=== PATIENT | female | born 1970 | race Caucasian/White ===

== ENCOUNTER 2020-08-18 14:22 | Emergency (ER) | payer OTHER, SELFPAY ==
[~2020-08-18] VITALS: Ht 157.5 cm; Wt 83.9 kg
[2020-08-18 14:25] VITALS: Ht 157.5 cm; Wt 83.9 kg
[2020-08-18 16:33] VITALS: BP 128/73
== END 2020-08-18 16:34 | disposition home or self-care (01) ==
LOC: ED 14:22
DX: R05 Cough (principal); R07.89 Other chest pain; H92.02 Otalgia, left ear; I10 Essential (primary) hypertension; J45.909 Unspecified asthma, uncomplicated; Z20.828 Contact with and (suspected) exposure to other viral communicable diseases; Z98.890 Other specified postprocedural states
CPT/HCPCS: U0003